=== PATIENT | male | born 2000 | race Two or more races ===

== ENCOUNTER 2019-06-09 20:44 | Emergency (ER) | payer BC ==
[~2019-06-09] VITALS: Ht 172.7 cm; Wt 72.6 kg
[2019-06-09 20:52] VITALS: BP 132/61
--- NOTE | 2019-06-09 20:57 | NUR ---
ED Nurse Note: Patient walked in to ER c/o flu like symptoms, headache, wattery eyes x 2 weeks. States symptoms keep coming back. AAO x4, VSS at this time.
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
[2019-06-09] MEDS ORDERED: ROBITUSSIN COU237 M2 PO (21:22)
[2019-06-09] MEDS ORDERED: TAMIFLU75 MG ORAL (21:22)
[2019-06-09] MEDS ORDERED: ALBUTEROL SULF8.5 GM INH (21:22)
[2019-06-09] MEDS ORDERED: IBUPROFEN600 MG ORAL (21:22)
[2019-06-09 21:34] VITALS: BP 132/61
--- NOTE | 2019-06-09 21:36 | NUR ---
Note alecone in EDM - 06/09/19 at 2136 by [email or web address] ED Nurse Note: Pt cleared by health care Provider for discharge. DC instructions/prescription was given and explained to pt and verbalized understanding of teachings. All medical deviecs such as ID band removed. Pt is AAO x4, ambulatory and left with all personal belongings.
== END 2019-06-09 21:35 | disposition home or self-care (01) ==
LOC: EMR 21:10
DX: J11.1 Influenza due to unidentified influenza virus with other respiratory manifestations (principal); R05 Cough; S46.012A Strain of muscle(s) and tendon(s) of the rotator cuff of left shoulder, initial encounter; V19.3XXA Pedal cyclist (driver) (passenger) injured in unspecified nontraffic accident, initial encounter; Y92.9 Unspecified place or not applicable
CPT/HCPCS: 99282